=== PATIENT | male | born 1960 | race Caucasian/White ===

== ENCOUNTER → 2019-02-04 | Day surgery (SDC) | payer OTHER ==
[~2019-02-04] MED LIST: FENTANYL CITRATE/PF 100MCG/2 ML INJ ONE; FIBER; FLONASE NS; HYOSCYAMINE SULFATE 0.5 MG/ML INJ ONE; LIDOCAINE HCL 2% LOCAL INJ 5 ML SDV VIAL INJ ONE; LISINOPRIL10 MG PO; METFORMIN HCL500 MG PO; MIDAZOLAM HCL 2 MG/2 ML VIAL ONE; OMEPRAZOLE40 MG PO; PROPOFOL IV EMULSION 10 MG/ML 50 ML VIAL ONE; SIMVASTATIN; SIMVASTATIN20 MG PO; ZYRTEC10 M3 PO
--- NOTE | 2019-02-04 15:57 | Operative Report ---
DATE OF PROCEDURE: 02/04/2019 SURGEON: Patric Guido MD PROCEDURE: Colonoscopy and polypectomy. INDICATION FOR COLONOSCOPY: Surveillance colonoscopy, personal history of colon polyps, father with colon cancer. MEDICATIONS: The patient was done under MAC. Please see anesthesiologist's note. PROCEDURE IN DETAIL: With the patient in left lateral decubitus position, a flexible fiberoptic Olympus colonoscope was inserted into the rectum with ease and advanced all the way to the cecum. Prep overall was suboptimal with retained stools in the colon. Diverticular disease was noted throughout the colon. The scope was then withdrawn slowly. Whatever was visualized of the mucosa overlying the cecum and ascending colon appeared to be within normal limits. Two polyps were hot biopsied from the transverse colon. Whatever was visualized of the mucosa of the descending other than for diverticulosis grossly appeared to be within normal limits. One polyp was snared. One polyp was hot biopsied from the sigmoid colon. The rectum grossly appeared to be within normal limits. The scope was then retroflexed into the distal rectum and small internal hemorrhoids were noted, none of which was actively bleeding. The scope was then straightened out, it was subsequently withdrawn. The patient tolerated the procedure well. IMPRESSION: 1. Suboptimal prep. 2. Pandiverticulosis. 3. Transverse colon polyps x2, hot biopsied. 4. Sigmoid colon polyps x2, one snared, one hot biopsied. 5. Internal hemorrhoids, none actively bleeding. PLAN: Follow up histology. Initiate high-fiber, low-fat diet. Initiate high-fiber supplement. The patient will need a followup colonoscopy in 1 year because of the suboptimal prep. Patric Guido MD [facility] [place][id number] cc: Femi Dey DO
== END | disposition home or self-care (01) ==
LOC: OR 11:31
PROVIDERS: ATTEND Internal Medicine Gastroenterology
DX: Z09 Encounter for follow-up examination after completed treatment for conditions other than malignant neoplasm (principal); D12.3 Benign neoplasm of transverse colon; D12.5 Benign neoplasm of sigmoid colon; K57.30 Diverticulosis of large intestine without perforation or abscess without bleeding; K59.00 Constipation, unspecified; K64.8 Other hemorrhoids; E11.9 Type 2 diabetes mellitus without complications; I10 Essential (primary) hypertension; Z01.810 Encounter for preprocedural cardiovascular examination; Z79.84 Long term (current) use of oral hypoglycemic drugs; Z68.33 Body mass index [BMI] 33.0-33.9, adult; Z80.0 Family history of malignant neoplasm of digestive organs
CPT/HCPCS: 36415; 45384; 45385; 82948; 93005; J1980; J2001; J2250; J2704

== ENCOUNTER → 2024-08-26 | Day surgery (SDC) | payer MEDICARE ==
[2024-08-22 14:14] LABS: EOSINOPHILS # (AUTO) 0.1 (0.0-0.4); EOSINOPHILS % 1.3 % (0.0-6.0); HEMATOCRIT 38.6 % (38.2-49.6); HEMOGLOBIN 12.6 g/dL (14.0-18.0); LYMPHOCYTES # (AUTO) 1.1 (1.0-3.2); LYMPHOCYTES % 28.6 % (18.0-39.1); MEAN CORPUSCULAR HEMOGLOBIN 36.1 pg (28-32); MEAN CORPUSCULAR HGB CONC 32.6 g/dL (31-35); MEAN CORPUSCULAR VOLUME 110.6 fL (81-99); MONOCYTES # (AUTO) 0.4 (0.2-0.8); MONOCYTES % 10.4 % (4.4-11.3); NEUTROPHILS # (AUTO) 2.3 (2.1-6.9); NEUTROPHILS % 58.4 % (38.7-80.0); PLATELET COUNT 139 x10e3/uL (140-360); RED BLOOD COUNT 3.49 x10e6/uL (4.3-5.7); RED CELL DISTRIBUTION WIDTH 12.3 % (11.7-14.4); WHITE BLOOD COUNT 3.85 x10e3/uL (4.8-10.8)
[~2024-08-26] MED LIST changes: +CALCIUM, MAG, ZINC; +CIALIS20 MG; +CLARITIN5 MG; -FENTANYL CITRATE/PF 100MCG/2 ML INJ ONE; -HYOSCYAMINE SULFATE 0.5 MG/ML INJ ONE; -LIDOCAINE HCL 2% LOCAL INJ 5 ML SDV VIAL INJ ONE; -MIDAZOLAM HCL 2 MG/2 ML VIAL ONE; -PROPOFOL IV EMULSION 10 MG/ML 50 ML VIAL ONE; +VITAMIN B COMP1 EACH
[2024-08-26] MEDS: LACTATED RINGER'S 1,000 ML ONE (07:10)
[2024-08-26 09:00] VITALS: BP 109/64; PULSE 109; RESP 18; TEMP 98.9; O2SAT 98
== END | disposition home or self-care (01) ==
LOC: OR 06:00
PROVIDERS: ATTEND Internal Medicine Gastroenterology
DX: Z12.11 Encounter for screening for malignant neoplasm of colon (principal); D12.2 Benign neoplasm of ascending colon; K57.30 Diverticulosis of large intestine without perforation or abscess without bleeding; K64.8 Other hemorrhoids; G47.33 Obstructive sleep apnea (adult) (pediatric); I10 Essential (primary) hypertension; E11.9 Type 2 diabetes mellitus without complications; Z01.810 Encounter for preprocedural cardiovascular examination; Z01.812 Encounter for preprocedural laboratory examination; Z79.84 Long term (current) use of oral hypoglycemic drugs; Z79.899 Other long term (current) drug therapy; Z80.0 Family history of malignant neoplasm of digestive organs
CPT/HCPCS: 36415; 45385; 85025; 93005; J7121